=== PATIENT | male | born 1980 | race Caucasian/White ===

== ENCOUNTER 2023-02-02 11:42 | Day surgery (SDC) | payer OTHER ==
[~2023-02-02] VITALS: Ht 175.3 cm; Wt 87.3 kg
[~2023-02-02 11:42] MED LIST: IBUP200C90 PO; NS 1,000 ML IV ONE
[2023-02-02] MEDS ORDERED: fentaNYL 100 MCG/2 ML INJECTION As Ordered ONE (13:46)
[2023-02-02] MEDS ORDERED: propofoL 200 MG/20 ML VIAL As Ordered ONE ×2 (13:46→13:52)
[2023-02-02] MEDS ORDERED: LIDOCAINE 2% 100MG/5ML SDV (FOR ANES.) As Ordered ONE (13:46)
[2023-02-02 14:20] VITALS: BP 116/62
== END 2023-02-02 14:39 | disposition home or self-care (01) ==
LOC: M OPP 11:42
PROVIDERS: ATTEND Internal Medicine Gastroenterology
DX: Z12.11 Encounter for screening for malignant neoplasm of colon (principal); K64.0 First degree hemorrhoids; K21.9 Gastro-esophageal reflux disease without esophagitis; Z79.899 Other long term (current) drug therapy
CPT/HCPCS: 45378; J3010